=== PATIENT | male | born 1945 | race Caucasian/White ===

== ENCOUNTER → 2023-12-06 10:00 | Outpatient (REF) | payer OTHER, SELFPAY | LOC: DHCBC HW 10:00 | PROVIDERS: ATTENDING PHYSICIAN Internal Medicine Cardiovascular Disease; FAMILY PHYSICIAN Family Medicine | DX: I10 Essential (primary) hypertension (principal); I25.10 Atherosclerotic heart disease of native coronary artery without angina pectoris; E78.2 Mixed hyperlipidemia | CPT/HCPCS: 93306 ==

== ENCOUNTER → 2024-08-11 14:30 | Outpatient (REF) | payer OTHER, SELFPAY | LOC: RAD 14:30 | PROVIDERS: ATTENDING PHYSICIAN Nurse Practitioner Adult Health; FAMILY PHYSICIAN Family Medicine | DX: J18.9 Pneumonia, unspecified organism (principal) | CPT/HCPCS: 71046 ==

== ENCOUNTER → 2024-10-08 08:15 | Outpatient (REF) | payer OTHER, SELFPAY | LOC: HWRAD 08:15 | PROVIDERS: ATTENDING PHYSICIAN Internal Medicine Critical Care Medicine; FAMILY PHYSICIAN Family Medicine | DX: J18.9 Pneumonia, unspecified organism (principal); R93.89 Abnormal findings on diagnostic imaging of other specified body structures | CPT/HCPCS: 71250 ==

== ENCOUNTER → 2025-01-06 07:24 | Outpatient (REF) | payer OTHER, SELFPAY | LOC: RCS 07:24 | PROVIDERS: ATTENDING PHYSICIAN Internal Medicine Cardiovascular Disease; FAMILY PHYSICIAN Family Medicine | DX: I25.10 Atherosclerotic heart disease of native coronary artery without angina pectoris (principal) | CPT/HCPCS: 78452; 93017; A9500; J2785 ==

== ENCOUNTER → 2025-01-08 07:08 | Outpatient (REF) | payer OTHER, SELFPAY | LOC: RCS 07:08 | PROVIDERS: ATTENDING PHYSICIAN Internal Medicine Cardiovascular Disease; FAMILY PHYSICIAN Family Medicine | DX: I25.10 Atherosclerotic heart disease of native coronary artery without angina pectoris (principal); I77.810 Thoracic aortic ectasia; R06.09 Other forms of dyspnea | CPT/HCPCS: 93306 ==

== ENCOUNTER 2025-01-20 07:11 | Day surgery (SDC) | payer OTHER, SELFPAY ==
[2025-01-20] VITALS (24 sets, daily range): BP systolic 134–185; BP diastolic 74–140; BMI 28.3
[2025-01-20] MEDS: NSS 283 ML IV (08:00)
[2025-01-20 09:32] LABS: ACT-LR - POC 287 Seconds (116-155)
[2025-01-20 09:48] LABS: ACT-LR - POC 298 Seconds (116-155)
--- NOTE | 2025-01-20 10:44 | ITS.CL.PN ---
[employer] - Procedure Note
Procedure
Procedure Note:
CARDIAC CATHETERIZATION REPORT
Date of Procedure: 01/21/2020
Referring: Dr. Leif Winston MD
Indication: Anginal chest pain, moderate to high risk stress test
PROCEDURE(S)
1. left heart catheterization
2. coronary angiography
3. IVUS LCx
4. PCI with JOSE to OM2
ACCESS: 6F right radial artery (closure: radial band)
CATHETERS
1. 6F JR4
2. 6F JL3.5
3. XB4 guide
MODERATE SEDATION: 45 minutes of moderate sedation was utilized. An independent medical staff physician was present to assist with and help manage the patient's level of consciousness and physiologic status.
HEMODYNAMIC DATA
LV 102 over (EDP 13) mmHg
AO 117/69 (mean 91) mmHg
CORONARY ANGIOGRAPHY
Dominance: Right
LM: Large, normal
LAD: Large vessel giving rise to a moderate caliber D1 and several additional small diagonal branches before wrapping around the apex. There is mild diffuse disease.
LCx: Large vessel giving rise to a small OM1, large branching OM2, and moderate caliber OM3. There is a 95% stenosis in the mid body of the large OM2 with DESTINEY II flow distally. There is also long segment severe disease in the proximal aspect of the
superior branch of the OM2 which is a sub-2 mm vessel.
RCA: Large vessel giving rise to medium caliber RPDA and several small RPL branches. There is a widely patent stent in the proximal to mid RCA and mild disease otherwise.
PCI to OM1
Heparin was given to achieve ACT greater than 300. A Runthrough wire was placed in the superior branch of the OM2 and initial lesion preparation performed with a 2.0 semicompliant balloon with full expansion noted. IVUS was performed demonstrating a
3.0 mm reference vessel diameter and minimal calcification. Stenting was performed with a 3.0 x 18 mm [place] Davison drug-eluting stent at 12 yahaira. IVUS was performed and demonstrated adequate stent expansion with mild underexpansion in the midportion
of the stent and no edge dissections. Postdilation was performed with a 3.0 mm NC balloon at 18 yahaira sparing the distal stent edge. Final angiographic result was outstanding. The wire and guide were removed and a TR band placed. The patient was
loaded with 600 mg Plavix.
RADIATION: dose 1383 mGy; DAP 80.9 Gy*cm2; fluoroscopy time 13.9 min
CONCLUSIONS
1. Mildly elevated LV filling pressure with no aortic stenosis
2. coronary artery disease as described with widely patent prior RCA stent and severe stenosis of the large OM1
3. successful IVUS guided PCI of the OM2 with a 3.0 x 18 mm [place] Davison drug-eluting stent postdilated to high-pressure with a 3.0 mm NC balloon.
RECOMMENDATIONS
1. DAPT with aspirin and Plavix for at least 6 months
2. Aggressive secondary prevention of coronary artery disease
Copy to: Dr. Kj Winston MD (supervisor component assembler); Dr. Alex Steinberg MD (PCP)
Signed: Oswaldo Bejarano MD, PhD
[2025-01-20] MEDS: TYLENOL 650 MG PO (14:01)
--- NOTE | 2025-01-20 15:21 | W.PN.UPDATE ---
Update Note
Progress Note Update
79 yo WM s/p PCI OM2 (Same day). He denies cp, sob, benjamin diet, voiding, amb w/o dizziness, EKG SR no ST changes, R rad site with small HT initially, pressed out now soft. He will be on DAPT ASA/Plavix. Cardiac rehab c/s. Activity restrictions
reviewed. 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 He is for d/c home after 330p.
== END 2025-01-20 15:30 | disposition home or self-care (01) ==
LOC: CATH 07:11
PROVIDERS: ATTENDING PHYSICIAN Student in an Organized Health Care Education/Training Program; FAMILY PHYSICIAN Orthopaedic Surgery Sports Medicine; OTHER PHYSICIAN Internal Medicine Cardiovascular Disease
DX: I25.10 Atherosclerotic heart disease of native coronary artery without angina pectoris (principal); Z95.5 Presence of coronary angioplasty implant and graft; I10 Essential (primary) hypertension; Z79.82 Long term (current) use of aspirin; Z79.899 Other long term (current) drug therapy; J44.9 Chronic obstructive pulmonary disease, unspecified; J43.9 Emphysema, unspecified
CPT/HCPCS: 92978; 99152; 99153; 85347; 93005; 93458; C1725; C1753; C1874; C1887; C1894; C9600; Q9967

== ENCOUNTER 2025-01-20 19:55 | Emergency (ER) | payer OTHER, SELFPAY ==
[2025-01-20] VITALS (8 sets, daily range): BP systolic 130–168; BP diastolic 68–93; BMI 28.1
--- NOTE | 2025-01-20 21:51 | ED.GENMED ---
History of Present Illness
General
Chief Complaint: Overdose Unintentional
Source: patient and family
Exam Limitations: none
Time Seen by Provider: 01/20/25 20:42
History of Present Illness
History of Present Illness:
79-year-old male had a cardiac stent placed today. He got home around 4 PM took a nap. Upon waking from his nap he thought it was initially the next morning. Because of this he took his morning medications which included Plavix amlodipine/NICOLE
inhibitor. Also took statin pantoprazole and vitamins. Currently feels minimally nausea no other complaints
Past History
Past History
ED Past Medical History: Arrthythmia, CAD, GERD, HTN, Hypercholesterolemia and Other (Colon polyps, prostatic hypertrophy, benign lung mass)
ED Past Surgical History: Cardiac (Cardiac stents), Orthopedic, Tonsilectomy and Other
Social History
Tobacco: Former smoker
Alcohol: None
Drug: None
Personal:
Living: with family
Review of Systems
Review of Systems
All Other Systems: Not applicable
Respiratory: Reports no symptoms
Cardiac: Reports no symptoms; Denies syncope
Phy Exam
Physical Exam
Physical Exam:
GENERAL: Alert and oriented in no apparent distress
EYE: Orbits normal.
CARDIAC: Regular rate and rhythm without any obvious murmurs.
LUNGS: Clear breath sounds,normal
ABDOMEN: Soft, without focal tenderness or distention
NEUROLOGICAL: Alert and oriented , grossly non-focal
SKIN: Warm and dry, no rash or lesion, no discoloration, skin intact. No unusual bruising
MUSCULOSKELETAL: Expected ecchymosis of the right wrist. No hematoma. Good distal pulses and color.
PSYCH: Normal and appropriate interaction.
Course
Orders/Labs/Results
Orders:
Orders
01/20/25 19:57
EKG [Electrocardiogram (*1)] Urgent
Reason for Study: Other
Other Reason for Exam: took medications that were supposed to be taken tomorrow AM
01/20/25 19:58
EKG- Treatment ONCE
Vital Signs
Initial and Last Documented VS:
Initial Vital Signs
BP Pulse Ox
168/83 95
01/20/25 19:58 01/20/25 19:58
Last Documented Vital Signs
Temp Pulse Resp BP Pulse Ox
98.0 F 58 12 131/85 92
01/20/25 20:00 01/20/25 23:00 01/20/25 23:00 01/20/25 23:00 01/20/25 23:00
MDM/Problems Addressed
Differential Diagnosis Includes:
Patient accidentally took an early dose of his dual antiplatelet therapy blood pressure medications statin PPI and vitamins. Clinically stable and nontoxic. Remained stable. This occurred about 3 hours prior to the current time. Cardiology was
made aware. Plan is observation for a few hours. Doubt these individual extra doses would cause any significant issue.
*Pulse Oximetry
Patient hypoxic: no (95%)
*Events Assistant Interpretation
Rate: normal
Interpretation: normal
Heart Rate: 66
Rhythm: sinus
*Critical Care Note
Total Time (30-74mins, 75-104mins- exclusive of procedures): Not Applicable
Data Reviewed
Review of Other/Old Records Reveals: Operative Reports and Discharge Summary
Update Note
Update Note:
0.... Patient is eating. Medically stable. Stable blood pressure. Discharged to follow-up
ED Attending Note
-
Portions of this chart may have been created with voice recognition software.� Occasional wrong word or��sound alike� substitutions may have occurred due to the inherent limitations of voice recognition software.
Discharge Plan
Departure
Patient Disposition: Home (Routine Discharge)
Date of Disposition: 01/20/25
Time of Disposition: 23:13
Patient with high blood pressure during this ER visit?: Yes
Discharge Problem:
Unintentional overdose
Instructions: Accidental Overdose (DC), BLOOD PRESSURE
Prescriptions:
No Action
rosuvastatin 20 MG tablet
20 mg PO DAILY
cholecalciferol (vitamin D3) [Vitamin D3] 1,000 UNIT capsule
1,000 unit PO DAILY
aspirin 81 mg Tablet,Delayed Release (Dr/Ec)
81 mg PO DAILY
amlodipine-benazepril 5-20 mg Capsule
1 cap PO DAILY
pantoprazole 40 MG tablet,delayed release (DR/EC)
40 mg PO DAILY
cyanocobalamin (vitamin B-12) 1,000 mcg Tablet
1,000 mcg PO DAILY
meclizine 25 mg Tablet
25 mg PO DAILY PRN (Reason: vertigo)
propranolol 20 mg Tablet
20 mg PO PRN PRN (Reason: Reduction Of Transepidermal Water Loss)
fluticasone propionate 50 mcg/actuation [place],Suspension
1 spray INTRANASAL BID
Centrum Adult 50 Plus 80 mcg Tablet,Chewable
1 tab PO DAILY
clopidogrel 75 mg tablet
75 mg PO DAILY Qty: 90 10RF
Referrals:
Maureen Mae CRNP [Family Provider]
Activity Restrictions/Additional Instructions:
As we discussed....
Take your Plavix and aspirin around noon tomorrow
Check your blood pressure in the morning and if it is reasonable you can continue your blood pressure medication. If it is borderline low hold on your medication for tomorrow
Return with any unusual lightheadedness weakness low blood pressure abnormal bleeding or any other concerning symptoms.
Interventions
Interventions:
*Risk Screen - Suicide Last Done: 01/20/25 20:00
*General Assessment Last Done: 01/20/25 20:00
*Neglect/Abuse Screening Last Done: 01/20/25 20:00
*ED COVID-19 Vaccine History Last Done: 01/20/25 20:00
ED- Cardiac Assessment Last Done: 01/20/25 20:50
ED- Neurological Assessment Last Done: 01/20/25 20:50
ED-Psychological Assessment Last Done: 01/20/25 20:50
ED- Pulmonary Assessment Last Done: 01/20/25 20:50
Discharge Date and Time
Print Language: FRISIAN
== END 2025-01-20 23:25 | disposition home or self-care (01) ==
LOC: EMR 19:55
PROVIDERS: EMERGENCY PHYSICIAN Emergency Medicine; FAMILY PHYSICIAN Nurse Practitioner Family
DX: T50.901A Poisoning by unspecified drugs, medicaments and biological substances, accidental (unintentional), initial encounter (principal); Y92.9 Unspecified place or not applicable; E78.00 Pure hypercholesterolemia, unspecified; I10 Essential (primary) hypertension; I25.10 Atherosclerotic heart disease of native coronary artery without angina pectoris; N40.0 Benign prostatic hyperplasia without lower urinary tract symptoms; Z86.0100 Personal history of colon polyps, unspecified; Z87.891 Personal history of nicotine dependence; Z95.5 Presence of coronary angioplasty implant and graft
CPT/HCPCS: 99283; 93005

== ENCOUNTER 2025-02-13 03:43 | Observation (INO) | payer OTHER, SELFPAY ==
[2025-02-12 17:34] VITALS: BP 160/84
[2025-02-12 20:24] VITALS: BP 143/67; BMI 28.2
[2025-02-12 20:34] LABS: Hematocrit 41.1 % (39.0-52.0); Hemoglobin 14.0 g/dL (13.0-18.0); Mean Corp Hgb Conc. 34.1 g/dL (33.0-37.0); Mean Corpuscular Volume 84.2 fL (80.0-94.0); Nucleated Red Blood Cells % 0 % (-); Platelet Count 249 10^3/uL (130-400); Red Cell Dist. Width 13.2 % (11.5-14.5)
[2025-02-12 20:44] LABS: INR 1.02; PT 13.9 Sec (11.4-14.6)
[2025-02-12 20:45] LABS: APTT 31.0 Sec (23.4-35.0)
[2025-02-12 20:50] LABS: ALT (SGPT) 34 U/L (0-50); AST (SGOT) 27 U/L (17-59); Albumin 4.6 g/dl (3.5-5.0); Alkaline Phosphatase 52 U/L (38-126); Blood Urea Nitrogen 13 mg/dl (9-20); Calcium 9.0 mg/dl (8.4-10.2); Carbon Dioxide 25 mmol/L (22-30); Chloride 108 mmol/L (98-107); Estimated Creatinine Clearance 83 ml/min; Glucose 103 mg/dl (70-99); Potassium 3.7 mmol/L (3.5-5.1); Sodium 140 mmol/L (135-145); Total Protein 6.7 g/dl (6.3-8.2); eGFR > 60.00
--- NOTE | 2025-02-12 21:00 | EDRN ---
Updated patient and family on lab results, patient resting comfortably at this time with call marin in reach.
[2025-02-12 21:02] LABS: Troponin I < 0.012 ng/ml
--- NOTE | 2025-02-12 21:30 | ED.GENMED ---
History of Present Illness
General
Chief Complaint: Dizziness
Time Seen by Provider: 02/12/25 20:37
History of Present Illness
History of Present Illness:
79-year-old male with history of CAD status post stenting on 01/20/2025, hypertension, hyperlipidemia, vertigo presenting for dizziness and generally feeling unwell. Patient reports symptoms started last night. He started to feel dizzy. He thought
that his symptoms could be secondary to vertigo, so he took a meclizine and went to bed. When he woke up he felt worse, also noted some numbness sensation to the right side of his face and his lips. The dizziness is worse with certain head
movements. Denies weakness or numbness to extremities. Notes that yesterday was having some blurred vision which improved. Denies known history of stroke. Denies recent fall or trauma. Denies chest pain or difficulty breathing. Denies
abdominal pain. Only other time that he had vertigo was 1 year ago, which she notes was very severe. Denies additional acute medical complaints
Past History
Past History
ED Past Medical History: Arrthythmia, CAD, GERD, HTN, Hypercholesterolemia and Other (Colon polyps, prostatic hypertrophy, benign lung mass)
ED Past Surgical History: Cardiac (Cardiac stents), Orthopedic, Tonsilectomy and Other
Social History
Tobacco: Former smoker
Alcohol: None
Drug: None
Personal:
Living: with family
Phy Exam
Physical Exam
Physical Exam:
General: Well-appearing, no clinical signs of dehydration, nontoxic and in no acute distress
HEENT: protecting airway, pupils equal and reactive, horizontal nystagmus when looking toward the right
Neck: appears supple
CV: Normal heart rate, regular rhythm
Resp: No accessory muscle use, no increased work of breathing, lungs clear to auscultation bilaterally
Abd: Soft and non-distended, no tenderness to palpation, normal bowel sounds
Extremities: No deformities, no swelling
Neuro: alert, no focal neurologic deficit
: deferred
Rectal: deferred
Psych: Normal affect
Skin: Intact
Scores
NIH Stroke Score
Level of Consciousness: 0 - Alert
LOC Questions: 0-Answers both correctly
LOC Commands: 0-Performs both correctly
Best Horizontal Gaze: 0-Normal
Visual Leung: 0=Normal, no visual loss
Facial Palsy: 0=Normal, symmetrical
Motor - Right Arm: 0=No drift 10 seconds
Motor - Left Arm: 0=No drift 10 seconds
Motor - Right Le-No drift 5 seconds
Motor - Left Le-No drift 5 seconds
Limb Ataxia: 0-Absent
Sensation: 0-Normal
Best Language: 0-No aphasia
Dysarthria: 0-Normal
Extinction and Inattention: 0-No abnormality
NIH Total Score:: 0
Course
Orders/Labs/Results
Orders:
Orders
02/12/25 17:14
Electrocardiogram (*1) Urgent
Reason for Study: Vertigo / Dizzy
EKG- Treatment ONCE
02/12/25 20:19
Cardiac Monitoring- Treatment ONCE
IV Insert/Care/Rem.- Treatment PRN
Vital Signs As Directed
Frequency: Other
Weight As Directed
Frequency: Once
Comment: ZERO STRETCHER SCALE FOR ACCURATE WEIGHT
02/12/25 20:21
CT Head W/o Iv Contrast Urgent
Comment:
Reason For Exam: confusion
02/12/25 20:26
Complete Blood Count/With Diff Urgent
Comprehensive Metabolic Panel Urgent
PTT Urgent
Prothrombin Time Urgent
Troponin I Urgent
02/12/25 21:23
CT Head & Neck Angio W/wo IV Urgent
Comment:
Reason For Exam: dizziness, L-facial numbness since yesterday
0.9% Sodium Chloride 1000 ml [Nss] 1,000 ml IV BOLUS
Meclizine [Antivert] 25 mg PO NOW STA
02/13/25 02:10
Admit/Transfer Patient As Directed
Co-Sign Provider:
Level of Care: Observation services
Assign to:: Telemetry
Physician / Group: Benitez
Diagnosis: Dizziness
Reason for Telemetry: CVA/TIA
Date to Stop Telemetry: 02/16/25
Time to Stop Telemetry: 11:00
PRN Pain Medication Management As Directed
May give lesser potent ordered pain med per pt: Yes
preference::
Protocol:: Medication orders for pain may be administered in a
manner that supports deferring to patient preference
when the pt is:
- Requesting an ordered lesser potent pain medication.
Least to most potent pain medications are defined
as: acetaminophen < NSAID < tramadol < opioids
(morphine, oxycodone, hydromorphone).
- Requesting a lesser dose of the same medication IF
ORDERED.
- Requesting a less intrusive route of administration
if both routes are prescribed by the provider (PO <
IV).
02/13/25 02:11
Code Status As Directed
Resuscitation Status: Full Code
02/16/25 11:00
DC Protocol for Telemetry ONCE
Abnormal Lab Results
02/12/25
20:26
Chloride 108 H mmol/L
(98-107)
Glucose 103 H mg/dl
(70-99)
02/12/25 20:26
02/12/25 20:26
Vital Signs
Initial and Last Documented VS:
Initial Vital Signs
Temp Pulse Resp Pulse Ox
98.9 F 72 18 97
02/12/25 17:32 02/12/25 17:32 02/12/25 17:32 02/12/25 17:32
Last Documented Vital Signs
Temp Pulse Resp BP Pulse Ox
97.7 F 61 20 149/78 95
02/12/25 20:24 02/13/25 02:01 02/13/25 02:01 02/13/25 02:01 02/13/25 02:15
MDM/Problems Addressed
MDM/Problems Addressed:
79-year-old male with history of CAD status post stenting on aspirin and Brilinta presenting to the emergency department for dizziness and right-sided numbness to the face. Vital signs on arrival are significant for mild hypertension.
On exam patient is resting very comfortably, no acute distress or discomfort. Patient notes symptoms started last evening. Component of dizziness appears consistent with BPPV, is positional, nystagmus on examination. However, also notes some numb
sensation to the right side of the face, and also confusion, which is more concerning for possible CVA. Given duration of symptoms, not within window for TNK. In addition, NIH stroke scale is currently a 0, again without indication for TNK. Will
plan for CT and CT angio. Will obtain laboratory analysis. EKG obtained, no arrhythmia. Will treat with IV fluids and meclizine and reassess for improvement.
21:40 - CT without contrast is negative
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 Could possibly be contributing to symptoms, however out of window for any emergent invasive procedure, and neurologically intact. No additional significant occlusions on CT.
Notes some mild improvement in symptoms, however is still symptomatic. Given presenting neurologic symptoms, feel patient warrants admission for neurologic consultation and MRI.
*Pulse Oximetry
SaO2: 94
Oxygen Mode of Delivery: Room air
Patient hypoxic: no
*EKG
Interpreted by ED Provider?: Yes
EKG Intrepretation Date: 02/12/25
EKG Intrepretation Time: 21:43
Interpretation: normal
Comparison EKG: no changes
Heart Rate: 68
Rate: normal
Rhythm: sinus
Mouthcard: normal axis
Interval: normal interval
QRS Pattern: normal QRS
Ischemia: no ischemia
*Critical Care Note
Total Time (30-74mins, 75-104mins- exclusive of procedures): Not Applicable
ED Attending Note
-
Portions of this chart may have been created with voice recognition software.� Occasional wrong word or��sound alike� substitutions may have occurred due to the inherent limitations of voice recognition software.
Discharge Plan
Departure
Patient Disposition: Admit
Date of Disposition: 02/12/25
Time of Disposition: 23:55
Presentation/result/management discussed w/ accepting MD/DO: Hospitalist
Condition: Fair
Discharge Problem:
Dizziness, Stroke-like symptoms
Prescriptions:
No Action
rosuvastatin 20 MG tablet
20 mg PO DAILY
aspirin 81 mg Tablet,Delayed Release (Dr/Ec)
81 mg PO DAILY
amlodipine-benazepril 5-20 mg Capsule
1 cap PO DAILY
pantoprazole 40 MG tablet,delayed release (DR/EC)
40 mg PO DAILY
cyanocobalamin (vitamin B-12) 1,000 mcg Tablet
1,000 mcg PO DAILY
meclizine 25 mg Tablet
25 mg PO DAILY PRN (Reason: vertigo)
propranolol 20 mg Tablet
20 mg PO DAILYPRN PRN (Reason: palpitations)
fluticasone propionate 50 mcg/actuation [place],Suspension
1 spray INTRANASAL DAILY
Centrum Adult 50 Plus 80 mcg Tablet,Chewable
1 tab PO DAILY
clopidogrel 75 mg tablet
75 mg PO DAILY Qty: 90 10RF
acetaminophen [Tylenol Extra Strength] 500 mg Tablet
500 - 1,000 mg PO BIDPRN PRN (Reason: mild pain)
cholecalciferol (vitamin D3) 25 mcg (1,000 unit) Capsule
25 mcg PO DAILY
Referrals:
Alex Steinberg MD [Family Provider, Family Practice]
Interventions
Interventions:
*Risk Screen - Suicide Last Done: 02/12/25 18:37
*General Assessment Last Done: 02/12/25 18:37
*Neglect/Abuse Screening Last Done: 02/12/25 18:37
*ED- Fall Risk Assessment Last Done: 02/12/25 20:24
*ED COVID-19 Vaccine History Last Done: 02/12/25 20:24
ED- Neurological Assessment Last Done: 02/12/25 18:37
ED- Cardiac Assessment Last Done: 02/12/25 18:37
ED Swallowing Screen Last Done: 02/12/25 18:37
Discharge Date and Time
Print Language: SPANISH
[2025-02-12] MEDS: ANTIVERT 25 MG PO (21:40)
[2025-02-12] MEDS: NSS 1000 IV (21:40)
[2025-02-12 21:41] VITALS: BP 157/84
--- NOTE | 2025-02-12 22:30 | EDRN ---
Patient ambulated into and out of the restroom, no further complaints at this time.
[2025-02-12 22:56] VITALS: BP 152/70
[2025-02-12 23:00] VITALS: BP 142/67
[2025-02-13] VITALS (8 sets, daily range): BP systolic 126–161; BP diastolic 71–87; PULSE 64; O2SAT 94; BMI 27.5
--- NOTE | 2025-02-13 | EDRN ---
Dr. Heath in to review things with patient and informed them that he will be admitted, patient aware next step is waiting for the admitting provider to see them.
--- NOTE | 2025-02-13 01:30 | EDRN ---
Patient aware we are still waiting on admitting provider who should hopefully be in soon, patient provided with another warm blanket, call marin n flakita.
--- NOTE | 2025-02-13 02:00 | EDRN ---
Dr. Marquis at bedside working on admission orders
--- NOTE | 2025-02-13 02:13 | HPS.HSE ---
Family Physician
-
Family Physician: Alex Steinberg
Chief Complaint
-
Dizziness, Fatigue
History of Present Illness
Patient is an 79y M with PMH significant for ASCVD, hypertension and vertigo who presents to ED complaining of dizziness and fatigue. Patient states that he 'did not feel well' on Sunday evening. He is rather vague with his symptoms and
detailed history is difficult. On Sunday evening, he became dizzy. He noted headache and R facial numbness / tingling. He took a meclizine and was able to get to sleep. Today he felt mildly dizzy throughout the day. He had off-and-on
headache. His dizziness was much worse with standing / changes in position. He had some 'indigestion' / substernal chest discomfort. His symptoms persisted throughout the day and he contacted his [employer] [facility] who recommended that he present to
the ED for evaluation.
In the ED, patient is comfortable while lying supine - but does complain of dizziness when sitting upright or standing.
He denies any current headache, numbness, weakness, etc.
Medical History
Past Medical History
Past Medical History: Reports Other
Additional Past Medical History:
ASCVD
COPD
GERD
Hypertension
Paroxysmal Atrial Tachycardia / SVT
Vertigo / BPPV
Past Surgical History: Reports Other
Additional Past Surgical History:
PTCA with Stent (most recent OM2 stent on 01/20/25)
Open Lung Biopsy (benign lesion)
\\Hemorrhoidectomy
Septoplasty
SVT Ablation
TURP
Social History
Tobacco: Former Smoker (Quit smoking 40 years ago.)
Alcohol: None
Drug: None
Family History
Family History: Not pertinent
Allergies / Home Medications
Allergies reflects when Allergies were last updated in [employer]
Home Medications with original date entered in [employer]
Allergy/Medication List:
Allergies
Allergy/AdvReac Type Severity Reaction Status Date / Time
No Known Allergies Allergy Verified 01/20/25 19:57
Home Medications
rosuvastatin 20 mg tablet 20 mg PO DAILY 10/13/16
amlodipine 5 mg-benazepril 20 mg capsule 1 cap PO DAILY 04/05/22
aspirin 81 mg tablet,delayed release 81 mg PO DAILY 04/05/22
pantoprazole 40 mg tablet,delayed release 40 mg PO DAILY Gastrointestinal issue 04/05/22
cyanocobalamin (vitamin B-12) 1,000 mcg tablet 1,000 mcg PO DAILY 11/29/22
clopidogrel 75 mg tablet 75 mg PO DAILY #90 tabs 01/20/25
fluticasone propionate 50 mcg/actuation nasal spray,suspension 1 spray intranasal DAILY 01/20/25
meclizine 25 mg tablet 25 mg PO DAILY PRN vertigo 01/20/25
multivitamin with minerals-folic acid 80 mcg chewable tablet (Centrum Adult 50 Plus) 1 tab PO DAILY 01/20/25
propranolol 20 mg tablet 20 mg PO DAILYPRN PRN palpitations 01/20/25
acetaminophen 500 mg tablet (Tylenol Extra Strength) 500 - 1,000 mg PO BIDPRN PRN mild pain 02/12/25
cholecalciferol (vitamin D3) 25 mcg (1,000 unit) capsule 25 mcg PO DAILY 02/12/25
Review of Systems
-
History Source: Patient
A 12 point ROS was completed and negative except as noted: Yes
Constitutional: Reports Fatigue; Denies Fever or Chills
EENT: Denies Sore Throat
Respiratory: Denies Cough or Trouble Breathing
Cardiac: Reports Chest Pain; Denies Diaphoresis or Palpitations
Abdomen/GI: Denies Abdominal Pain, Nausea, Vomiting or Diarrhea
: Denies Dysuria, Frequency or Flank Pain
Musculoskeletal: Denies Joint Pain or Edema
Neurological: Reports Dizzy, Headache and Numbness; Denies Weakness
Psych: Denies Depression or Anxiety
Physical Exam
Vital Signs
Vital Signs
Temp Pulse Resp BP Pulse Ox
97.7 F 55 14 145/71 96
02/12/25 20:24 02/13/25 00:45 02/13/25 00:45 02/13/25 00:00 02/13/25 00:45
Physical Exam
General: Other (79y M in mild distress due to dizziness.)
HEENT: Moist mucous membranes and PERRLA
Respiratory: Clear; No Wheezes, Rales or Rhonchi
Cardiac: S1/S2 and Regular Rhythm; No Murmur
GI: Soft, Non Tender, Non Distended and Normal Bowel Sounds
Musculoskeletal: No Clubbing, No Cyanosis and No Edema
Neuro: AO x 3 and Nonfocal/grossly intact
Laboratory Results
-
02/12/25 20:26
02/12/25 20:
Laboratory Results
PT 13.9 Sec (11.4-14.6) 02/12/25 20:26
INR 1.02 02/12/25 20:26
APTT 31.0 Sec (23.4-35.0) 02/12/25 20:26
Total Bilirubin 0.4 mg/dl (0.2-1.3) 02/12/25 20:26
AST 27 U/L (17-59) 02/12/25 20:26
ALT 34 U/L (0-50) 02/12/25 20:26
Alkaline Phosphatase 52 U/L (38-126) 02/12/25 20:26
Troponin I < 0.012 ng/ml 02/12/25 20:26
Impression/Plan
-
A/P: Patient is an 79y M with PMH significant for ASCVD, HTN and recent PTCA with stent (01/20/25) who presents to ED complaining of dizziness, headache and fatigue x 2-3 days.
Dizziness / Headache
- Observe overnight for further evaluation and treatment.
- Intermittent dizziness symptoms x 1 year - usually aborted with meclizine.
- CTA done in the ED this evening shows significant stenosed segment of the L V4 vertebral artery - ? related to current / ongoing symptoms.
- No other focal deficits apprecaited on exam.
- Continue meclizine PRN.
- PT / Vestibular therapy eval in the AM.
- neurology evaluation.
- Continue DAPT which he is already on post-cath / stent.
- MRI in the AM.
- Follow for any new / worsening neurologic symptoms overnight.
ASCVD
- Some 'indigestion' associated with his current symptoms.
- No new ischemic changes on EKG.
- Follow serial trop to rule out new ischemia.
- Continue current CV med regimen including DAPT, statin, etc.
Benign Hypertension
- Continue outpatient med regimen and adjust as needed.
SVT
- s/p prior ablation. Has '[id number]-zwkyly' propranolol for palpitations but has not taken this in quite some time.
- Monitor on tele.
DVT Prophylaxis: SCDs
Code Status: Full
[2025-02-13] MEDS: ANTIVERT 25 MG PO ×2 (04:48→13:09)
[2025-02-13 05:43] LABS: Troponin I < 0.012 ng/ml
--- NOTE | 2025-02-13 06:20 | PTCARENOTE ---
Patient received from ED via stretcher. Patient reports dizziness when sitting up. Patient able to stand after some time. Patient ambulated with assistance to bed. Meclizine given. Patient placed on panel monitor. Vitals WNL. POC reviewed with
patient. Call marin within reach. Will continue to monitor patient.
--- NOTE | 2025-02-13 07:10 | W.PN.HOSP.TC ---
Today's Communication/Plan
-
Continue DAPT
Bedrest
Appreciate neuro eval
Assessment / Plan
Assessment / Plan
Physical Exam
General: Other (79y M in mild distress due to dizziness.)
HEENT: Moist mucous membranes and PERRLA
Respiratory: Clear; No Wheezes, Rales or Rhonchi
Cardiac: S1/S2 and Regular Rhythm; No Murmur
GI: Soft, Non Tender, Non Distended and Normal Bowel Sounds
Musculoskeletal: No Cyanosis and No Edema
Neuro: AO x 3 and Nonfocal/grossly intact
Assessment/Plan
79 y/o male with PMH significant for ASCVD, hypertension and vertigo who presents to [facility] ED complaining of dizziness and fatigue. Patient stated that he 'did not feel well' on the evening of 02/10/25. He was rather vague with his symptoms and
detailed history was difficult. On 02/11/25 evening, he became dizzy. He noted headache and right facial numbness / tingling. He took a meclizine and was able to get to sleep. On 02/12/25, he felt mildly dizzy throughout the day. He had
off-and-on headache. His dizziness was much worse with standing / changes in position. He had some 'indigestion' / substernal chest discomfort. His symptoms persisted throughout the day and he contacted his Clock Maker who recommended that he
present to the ED for evaluation. In the ED, patient was comfortable while lying supine - but did complain of dizziness when sitting upright or standing.
Presentation with Dizziness/Headache/Fatigue
Chronic Vertigo x1 Year
- Intermittent dizziness symptoms x 1 year - usually aborted with meclizine.
- CTA done in the ED this evening showed significant stenosed segment of the L V4 vertebral artery - ? related to current / ongoing symptoms.
- No other focal deficits appreciated on exam.
- Continue meclizine PRN.
- PT / Vestibular therapy eval
- Neurology evaluation.
- Continue DAPT which he is already on post-cath / stent.
- MRI with no acute changes
- Follow for any new / worsening neurologic symptoms
Coronary Artery Disease status post stent
- Some 'indigestion' associated with his current symptoms.
- No new ischemic changes on EKG.
- Follow serial trop to rule out new ischemia.
- Continue current CV med regimen including DAPT, statin, etc.
Benign Hypertension
- Continue outpatient med regimen and adjust as needed.
SVT
- s/p prior ablation. Has '[id number]' propranolol for palpitations but has not taken this in quite some time.
- Monitor on tele.
DVT Prophylaxis: SCDs. Lovenox.
Diet: Speech saw and said okay to continue current diet
Code Status: Full Code
Anticipated Discharge: 24 - 48 hours
Subjective/Interval History
-
Date of Service: February 13, 2025
Patient was seen and examined. He said that he was still feeling dizzy but otherwise denied any other symptoms or complaints.
Objective Data
-
Labs:
Laboratory Results
02/12/25 02/13/25
20:26 06:00
WBC 5.6 Pending
Hgb 14.0 Pending
Hct 41.1 Pending
Plt Count 249 Pending
PT 13.9
INR 1.02
APTT 31.0
Sodium 140 Pending
Potassium 3.7 Pending
Chloride 108 H Pending
Carbon Dioxide 25 Pending
BUN 13 Pending
Creatinine 0.8 Pending
Glucose 103 H Pending
Calcium 9.0 Pending
Total Bilirubin 0.4
AST 27
ALT 34
Alkaline Phosphatase 52
Vital Signs:
Vital Signs
Temp Pulse Resp BP Pulse Ox
97.7 F 60 18 149/86 96
02/13/25 04:25 02/13/25 04:25 02/13/25 04:25 02/13/25 04:25 02/13/25 04:25
[2025-02-13] MEDS: ASPIR LOW (ENTERIC COATED) 81 MG PO (09:06)
[2025-02-13] MEDS: PLAVIX 75 MG PO (09:06)
[2025-02-13] MEDS: PROTONIX 40 MG PO (09:06)
[2025-02-13] MEDS: NORVASC 5 MG PO (09:06)
[2025-02-13] MEDS: CRESTOR 20 MG PO (09:06)
[2025-02-13] MEDS: ZESTRIL 20 MG PO (09:09)
[2025-02-13 09:46] LABS: Hematocrit 42.8 % (39.0-52.0); Hemoglobin 14.4 g/dL (13.0-18.0); Mean Corp Hgb Conc. 33.6 g/dL (33.0-37.0); Mean Corpuscular Volume 84.9 fL (80.0-94.0); Platelet Count 260 10^3/uL (130-400); Red Cell Dist. Width 13.3 % (11.5-14.5)
[2025-02-13 10:14] LABS: Blood Urea Nitrogen 9 mg/dl (9-20); Calcium 9.1 mg/dl (8.4-10.2); Carbon Dioxide 22 mmol/L (22-30); Chloride 110 mmol/L (98-107); Estimated Creatinine Clearance 95 ml/min; Glucose 136 mg/dl (70-99); HDL Cholesterol 37 mg/dl; LDL Cholesterol, Calculated 38 mg/dl; Potassium 4.1 mmol/L (3.5-5.1); Sodium 142 mmol/L (135-145); Very Low Density Lipoprotein 17 mg/dl (0-30); eGFR > 60.00
[2025-02-13 10:25] LABS: Troponin I < 0.012 ng/ml
--- NOTE | 2025-02-13 11:04 | PTOTSP ---
Speech therapy
Presentation: Patient's speech and language appeared to be WNL during conversation with FIRE SPRINKLER INSTALLER. Patient denied any communicative deficits. '
Swallowing function: FIRE SPRINKLER INSTALLER observed patient with several bites of regular consistency solids and sips of thin liquids (cup and straw) in which patient appeared to tolerate as he did not exhibit any overt clinical s/sx of aspiration or difficulty with
mastication/ manipulation. Patient stated he occasionally has difficulty with hard, dry solids as they 'get stuck in throat' but they 'clear with sips of water'. FIRE SPRINKLER INSTALLER did not observe this complaint and patient stated that this occurs only once in
awhile. FIRE SPRINKLER INSTALLER educated patient on assessment options (VSE outpatient) if this issue continues or becomes difficult.
Recommendations:
1) Continuation of reg/ thin
2) Aspiration and reflux precautions
3) Medications as tolerated
Plan: FIRE SPRINKLER INSTALLER will continue to follow to ensure tolerance; pending hospitalization.
[2025-02-13 12:30] LABS: Glycohemoglobin (HgbA1c) 5.5 % (4.0-5.6)
--- NOTE | 2025-02-13 17:34 | CON.NEURO ---
Addendum entered and electronically signed by Bhavin Coles MD 02/13/25 17:49:
I also believe that he has left BPPV separate from the stroke.
Original Note:
Neuro Assessment/Plan
Assessment
brain MRI imgs rev'd, normal
CTA head/neck imgs rev'd with patient and family identifying L V4 stenosis, basilar artery, and right AICA where i believe the stroke is
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
the usual treatment would be 90 days of DAPT in [place] shown to be superior to wingspan stent; he is already on longer duration from his [employer] professional
he should discuss with his [employer] professional if additional screening for recurrent afib; when I believe the stroke etiology is vascular, the 3 year detection rate with ILR ~21%
Consultation
Order
Date of Consultation: 02/13/25
Requesting Provider: Corey Parikh
Reason for Consult: dizziness
Subjective/Objective
Subjective Data
Date of Service: February 13, 2025
from h&p:
Patient is an 79y M with PMH significant for ASCVD, hypertension and vertigo who presents to ED complaining of dizziness and fatigue. Patient states that he 'did not feel well' on Sunday evening. He is rather vague with his symptoms and
detailed history is difficult. On Sunday evening, he became dizzy. He noted headache and R facial numbness / tingling. He took a meclizine and was able to get to sleep. Today he felt mildly dizzy throughout the day. He had off-and-on
headache. His dizziness was much worse with standing / changes in position. He had some 'indigestion' / substernal chest discomfort. His symptoms persisted throughout the day and he contacted his Process Engineering Intern who recommended that he present to
the ED for evaluation.
In the ED, patient is comfortable while lying supine - but does complain of dizziness when sitting upright or standing.
He denies any current headache, numbness, weakness, etc.
seen by PT and diagnosed with left ear bppv with torsional nystagmus seen with left karen hallpike
3 weeks ago he had a cardiac stent placed. h/o afib s/p ablation.
Objective Data
Vital Signs
Temp Pulse Resp BP Pulse Ox
36.5 C 73 16 127/77 96
02/13/25 15:35 02/13/25 15:35 02/13/25 15:35 02/13/25 15:35 02/13/25 15:35
Lab Results
02/13/25 09:36
02/13/25 09:36
PT 13.9 Sec (11.4-14.6) 02/12/25 20:26
INR 1.02 02/12/25 20:26
APTT 31.0 Sec (23.4-35.0) 02/12/25 20:26
Sodium 142 mmol/L (135-145) 02/13/25 09:36
Potassium 4.1 mmol/L (3.5-5.1) 02/13/25 09:36
BUN 9 mg/dl (9-20) 02/13/25 09:36
Glucose 136 mg/dl (70-99) H 02/13/25 09:36
Calcium 9.1 mg/dl (8.4-10.2) 02/13/25 09:36
LDL Cholesterol, Calc 38 mg/dl 02/13/25 09:36
Patient Allergies
No Known Allergies Allergy (Verified 01/20/25 19:57)
Physical Exam
-
AAOx3, speech clear, language intact
VFF, EOMI, subtle right facial droop, widening palpebral fissure
left proprioceptive (upward) drift
trace vibratory loss on the left
Medications
-
Active Medications
Generic Name Dose Route Start Last Admin
Trade Name Freq PRN Reason Stop Dose Admin
Acetaminophen 650 mg 02/13/25 03:56
Acetaminophen 325 Mg Tablet PO 03/13/25 03:55
Q4HPRN PRN
Mild Pain / Temp > 101
Amlodipine Besylate 5 mg 02/13/25 08:00 02/13/25 09:06
Amlodipine 5 Mg Tablet PO 03/13/25 07:59 5 mg
DAILY PAPO Administration
Aspirin 81 mg 02/13/25 08:00 02/13/25 09:06
Aspirin 81 Mg (Enteric Coated) Tablet PO 03/13/25 07:59 81 mg
DAILY PAPO Administration
Clopidogrel Bisulfate 75 mg 02/13/25 08:00 02/13/25 09:06
Clopidogrel 75 Mg Tablet PO 03/13/25 07:59 75 mg
DAILY PAPO Administration
Enoxaparin Sodium 40 mg 02/13/25 18:00
Enoxaparin Sodium 40 Mg/0.4 Ml Syringe SC 03/13/25 17:59
QPM PAPO
Lisinopril 20 mg 02/13/25 08:00 02/13/25 09:09
Lisinopril 20 Mg Tablet PO 03/13/25 07:59 20 mg
DAILY PAPO Administration
Meclizine HCl 25 mg 02/13/25 03:56 02/13/25 13:09
Meclizine 25 Mg Tablet PO 03/13/25 03:55 25 mg
Q8HPRN PRN Administration
vertigo
Pantoprazole Sodium 40 mg 02/13/25 08:00 02/13/25 09:06
Pantoprazole 40 Mg Delayed Release Tablet PO 03/13/25 07:59 40 mg
DAILY PAPO Administration
Rosuvastatin Calcium 20 mg 02/13/25 08:00 02/13/25 09:06
Rosuvastatin (Crestor) 20 Mg Tablet PO 03/13/25 07:59 20 mg
DAILY PAPO Administration
Sodium Chloride 0 flush 02/13/25 05:00
Sodium Chloride 0.9% (Flush) Syringe IV 03/13/25 04:59
PER PROTOCOL PAPO
Home Medications
�Medication �Instructions �Recorded
rosuvastatin 20 mg tablet 20 mg PO DAILY 10/13/16
amlodipine 5 mg-benazepril 20 mg 1 cap PO DAILY 04/05/22
capsule
aspirin 81 mg tablet,delayed 81 mg PO DAILY 04/05/22
release
pantoprazole 40 mg tablet,delayed 40 mg PO DAILY Gastrointestinal 04/05/22
release issue
cyanocobalamin (vitamin B-12) 1,000 mcg PO DAILY 11/29/22
1,000 mcg tablet
clopidogrel 75 mg tablet 75 mg PO DAILY #90 tabs 01/20/25
fluticasone propionate 50 1 spray intranasal DAILY 01/20/25
mcg/actuation nasal
spray,suspension
meclizine 25 mg tablet 25 mg PO DAILY PRN vertigo 01/20/25
multivitamin with minerals-folic 1 tab PO DAILY 01/20/25
acid 80 mcg chewable tablet
(Centrum Adult 50 Plus)
propranolol 20 mg tablet 20 mg PO DAILYPRN PRN palpitations 01/20/25
acetaminophen 500 mg tablet 500 - 1,000 mg PO BIDPRN PRN mild 02/12/25
(Tylenol Extra Strength) pain
cholecalciferol (vitamin D3) 25 25 mcg PO DAILY 02/12/25
mcg (1,000 unit) capsule
--- NOTE | 2025-02-13 18:13 | W.DCSUMMARY ---
Discharge Summary
Discharge Data
Date of Admission: 02/13/25
Date of Discharge: 02/13/25
Total time spent discharging patient (in min): 44
-
Pending Results: No
Hospital Course
79 y/o male with past medical history of CAD status post stenting on 01/20/2025 (on dual antiplatelet therapy), hypertension, hyperlipidemia, GERD and vertigo presented with dizziness. CT Head showed no acute changes, CTA Head and Neck showed 'Short
segment high-grade stenosis of the V4 left vertebral artery. Mild stenoses of the cavernous segments of the bilateral ICAs and the V4 right vertebral artery. No other high-grade stenosis or occlusion in the [place] or the arterial
vasculature of the neck,' as per the radiologist, and brain MRI was unremarkable. Neurology was consulted and mentioned that patient has left BPPV separate from the stroke. Neurology mentioned that patient has acute stroke, most likely right spencer,
etiology being left V4 stenosis - the usual treatment would be 90 days of dual antiplatelet therapy in [facility] shown to be superior to wingspan stent; patient was noted to already be on longer duration from his custodial aide. Patient would have to
discuss with his custodial aide if additional screening for recurrent atrial fibrillation was needed. Patient and his family wanted patient to go home, and patient was discharged.
Discharge Plan
-
Patient Disposition: Home (Routine Discharge)
Discharge Diagnosis/Procedures: Stroke in the right spencer (too small to show) and left Benign Paroxysmal Positional Vertigo (as per neurologist)
Left V4 stenosis, basilar artery, and right AICA where it is believed the stroke is
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
Presentation with Dizziness/Headache/Fatigue -- SYMPTOMS IMPROVED
Chronic Vertigo x1 Year
Coronary Artery Disease status post stent
Benign Hypertension
Supraventricular Tachycardia status post prior ablation
Condition: Good
Diet: Low Fat, Low Cholesterol and Low Sodium
Activity: With assistance
Driving Restrictions: No driving
Other Services: VN
Activity Restrictions/Additional Instructions:
Given that you have had acute stroke, discuss with your custodial aide if additional screening needed for recurrent atrial fibrillation
Referrals:
Alex Steinberg MD [Family Provider, Family Practice] - in less than 1 week
Referral Note: Hospital Follow-Up
Kj Winston MD [Active, Cardiology] - in three to four weeks
Referral Note: Hospital Follow-Up
Prescriptions:
Continued
rosuvastatin 20 MG tablet
20 mg PO DAILY
aspirin 81 mg Tablet,Delayed Release (Dr/Ec)
81 mg PO DAILY
amlodipine-benazepril 5-20 mg Capsule
1 cap PO DAILY
pantoprazole 40 MG tablet,delayed release (DR/EC)
40 mg PO DAILY
cyanocobalamin (vitamin B-12) 1,000 mcg Tablet
1,000 mcg PO DAILY
meclizine 25 mg Tablet
25 mg PO DAILY PRN (Reason: vertigo)
propranolol 20 mg Tablet
20 mg PO DAILYPRN PRN (Reason: palpitations)
fluticasone propionate 50 mcg/actuation [place],Suspension
1 spray INTRANASAL DAILY
Centrum Adult 50 Plus 80 mcg Tablet,Chewable
1 tab PO DAILY
clopidogrel 75 mg tablet
75 mg PO DAILY Qty: 90 10RF
acetaminophen [Tylenol Extra Strength] 500 mg Tablet
500 - 1,000 mg PO BIDPRN PRN (Reason: mild pain)
cholecalciferol (vitamin D3) 25 mcg (1,000 unit) Capsule
25 mcg PO DAILY
Discharge Orders:
Discharge Patient (As Directed); Ordered 02/13/25
Ordered By: Corey Parikh
Discharge Date and Time
Discharge Date/Time: 02/13/25 18:46
Print Language: [id number]
== END 2025-02-13 18:46 | disposition home or self-care (01) ==
LOC: 3 WEST ACU 03:43
PROVIDERS: ADMITTING PHYSICIAN Hospitalist; ATTENDING PHYSICIAN Hospitalist; CONSULT PHYSICIAN Psychiatry & Neurology Clinical Neurophysiology; EMERGENCY PHYSICIAN Student in an Organized Health Care Education/Training Program; FAMILY PHYSICIAN Family Medicine
DX: I63.212 Cerebral infarction due to unspecified occlusion or stenosis of left vertebral artery (principal); H81.12 Benign paroxysmal vertigo, left ear; I65.1 Occlusion and stenosis of basilar artery; I65.23 Occlusion and stenosis of bilateral carotid arteries; N40.0 Benign prostatic hyperplasia without lower urinary tract symptoms; I25.10 Atherosclerotic heart disease of native coronary artery without angina pectoris; I10 Essential (primary) hypertension; J44.9 Chronic obstructive pulmonary disease, unspecified; K21.9 Gastro-esophageal reflux disease without esophagitis; E78.00 Pure hypercholesterolemia, unspecified; Z79.02 Long term (current) use of antithrombotics/antiplatelets; Z79.82 Long term (current) use of aspirin; Z79.899 Other long term (current) drug therapy; Z87.891 Personal history of nicotine dependence; Z95.5 Presence of coronary angioplasty implant and graft
CPT/HCPCS: 70450; 70496; 70498; 70551; 80048; 80053; 80061; 83036; 84443; 84484; 85025; 85027; 85610; 85730; 92610; 93005; 96360; 97112; 97163; 97166; 99285; G0378; Q9967

== ENCOUNTER → 2025-02-24 09:56 | Outpatient (REF) | payer OTHER, SELFPAY | LOC: HWRAD 09:56 | PROVIDERS: ATTENDING PHYSICIAN Internal Medicine Critical Care Medicine; FAMILY PHYSICIAN Family Medicine | DX: J18.9 Pneumonia, unspecified organism (principal) | CPT/HCPCS: 71250 ==